=== PATIENT | female | born 1990 | race African-American/Black ===

== ENCOUNTER 2017-08-22 00:54 | Emergency (ER) | payer MEDICAID ==
[2017-08-22 01:02] VITALS: BP 143/101
[2017-08-22] MEDS ORDERED: NAPROXEN 250 MG TABLET PO ONE (01:04)
[2017-08-22] MEDS ORDERED: LIDOCAINE 1%/EPINEPHRINE INJ 20 ML VIAL INJ ONE (01:05)
--- NOTE | 2017-08-22 01:09 | ER Document Report ---
ED General - General Chief Complaint: Toothache Stated Complaint: TOOTH PAIN TRAVEL OUTSIDE OF THE [place] IN LAST 30 DAYS: No - HPI Notes: 27-year-old female presents with dental pain. Patient has history of chronic intermittent dental pain, of note had a infected tooth removed today from the right side. However she complains of increasing pain of her left mandibular second and third molar. Ongoing for 3 weeks but worse tonight, slight swelling. Throbbing aching, hot and cold sensitive. No trauma. No other modifying factors, no other associated symptoms, no other provocative or palliative factors. - Related Data Allergies/Adverse Reactions: Penicillins Allergy (Verified 08/22/17 00:58) Past Medical History - Social History Smoking Status: Never Smoker Frequency of alcohol use: None Drug Abuse: None Family History: None Patient has suicidal ideation: No Patient has homicidal ideation: No - Medical History Medical History: Negative Renal/ Medical History: Denies: Hx Peritoneal Dialysis Review of Systems - Review of Systems Notes: Review of systems as in history of present illness, otherwise no significant headache, chest pain, abdominal pain. Physical Exam - Vital signs Vitals: Temp Pulse Resp BP Pulse Ox 98.7 F 76 17 143/101 H 100 08/22/17 01:01 08/22/17 01:01 08/22/17 01:01 08/22/17 01:01 08/22/17 01:01 - Notes Notes: General: Well devloped, no acute distress. HEENT: Normocephalic, atraumatic. Pupils equal round reactive to light. Mucosa moist. No JVD. Poor dentition scattered. Carious left second and third molars. Mild gingival erythema. Chest: No trauma, normal excursion. Respiratory: Good air exchange, normal excursion. Cardiac: Regular rhythm Abdomen: Soft, benign. Nondistended. Back: No asymmetry or gross abnormality. Motor: Grossly normal power and tone. Neurologic: Alert, nonfocal. Vascular: Well perfused Skin: No petechiae or purpura Course - Re-evaluation Re-evalutation: 08/22/17 01:07 Patient is already on clindamycin she will continue this, see no major dental abscess. May have an early infection. Switch her to naproxen, perform dental block, follow-up with her dentist. Using 1% lidocaine with epinephrine after appropriate [place] identified in the inferior alveolar nerve block is performed on the right side, moderate relief is noted. - Vital Signs Vital signs: Temp Pulse Resp BP Pulse Ox 98.7 F 76 17 143/101 H 100 08/22/17 01:01 08/22/17 01:01 08/22/17 01:01 08/22/17 01:01 08/22/17 01:01 Discharge - Discharge Clinical Impression: Pain, dental Condition: Good Disposition: HOME, SELF-CARE Prescriptions: Naproxen 500 mg PO Q12 PRN #12 tablet PRN Reason:
== END 2017-08-22 01:20 | disposition home or self-care (01) ==
LOC: ER 00:54
DX: K08.9 Disorder of teeth and supporting structures, unspecified (principal); Z88.0 Allergy status to penicillin
CPT/HCPCS: 99282; 64400; J3490 ×2

== ENCOUNTER 2017-08-22 02:48 | Emergency (ER) | payer MEDICAID ==
[2017-08-22 02:55] VITALS: BP 129/77
[2017-08-22] MEDS ORDERED: HYDROCODONE/ACETAMINOPHEN 5-325 MG (6 TAB/ER DISP) PO PRN (03:04)
--- NOTE | 2017-08-22 03:09 | ER Document Report ---
ED General - General Chief Complaint: Toothache Stated Complaint: TOOTH PAIN Time Seen by Provider: 08/22/17 02:57 Notes: Patient is a 19-year-old female presents with complaint of dental pain on the left side. She is icing earlier today and given a dental block. She says it has not helped and she has been taking naproxen as prescribed and she still severe pain and cannot sleep. She had a tooth removed on the right side yesterday. She has 2 wisdom teeth are causing severe pain. The dentist referred her to an oral surgeon who will remove these on the . She says that she cannot tolerate the pain is been able to sleep and is what she is come back to the ER. No fevers. No new facial swelling. No difficulty breathing or swallowing. TRAVEL OUTSIDE OF THE [place] IN LAST 30 DAYS: No - Related Data Allergies/Adverse Reactions: Penicillins Allergy (Verified 08/22/17 00:58) Past Medical History - Social History Smoking Status: Never Smoker Frequency of alcohol use: None Drug Abuse: None Family History: None Renal/ Medical History: Denies: Hx Peritoneal Dialysis Review of Systems - Review of Systems Notes: My Normal Review Basic REVIEW OF SYSTEMS: CONSTITUTIONAL : Denies fever, chills, or sweats. Denies recent illness. EENT: Dental pain RESPIRATORY: Denies cough, cold, or chest congestion. Denies shortness of breath, difficulty breathing, or wheezing. NEUROLOGICAL: Denies altered mental status or loss of consciousness. ALL OTHER SYSTEMS REVIEWED AND NEGATIVE. Physical Exam - Vital signs Vitals: Temp Pulse Resp BP Pulse Ox 97.7 F 78 16 129/77 H 100 08/22/17 02:51 08/22/17 02:51 08/22/17 02:51 08/22/17 02:51 08/22/17 02:51 - Notes Notes: General Appearance: Well nourished, alert, cooperative, no acute distress, moderate obvious discomfort. Tearful Vitals: reviewed, See vital signs table. Head: no swelling or tenderness to the head Eyes: PERRL, EOMI, Conjuctiva clear Mouth: No evidence of gingival abscess or swelling. Patient has multiple dental fillings. Throat: No tonsillar inflammation, No airway obstruction, No lymphadenopathy Neck: Supple, no neck tenderness, No neck swelling Neuro: speech clear, oriented x 3, normal affect, responds appropriately to questions. Course - Re-evaluation Re-evalutation: 08/22/17 03:12 Patient does appear to be in significant pain. She did try the initial outpatient treatment which was Naprosyn a dental block but this did not work for her. I did look her up on the narcotic prescription database and she has never received any narcotics in the last 6 months. I do feel that her pain is legitimate. I informed her that I would send her home with a small bottle of [place]. I informed her that I do not want her to use this frequently and to only use it when absolutely necessary and she is having severe pain. I informed her that she cannot take it if she will be the only parent caring for her children as the medicine will affect her judgment therefore she must have someone else at the house helping care for the children if she is going to take medication. I informed her not to drive. Patient to return to ER immediately if she has facial swelling, swelling below the jaw, difficulty breathing or swallowing, or fevers. Patient agrees with plan and will be discharged home. Dictation of this chart was performed using voice recognition software; therefore, there may be some unintended grammatical errors. - Vital Signs Vital signs: Temp Pulse Resp BP Pulse Ox 97.7 F 78 16 129/77 H 100 08/22/17 02:51 08/22/17 02:51 08/22/17 02:51 08/22/17 02:51 08/22/17 02:51 Discharge - Discharge Clinical Impression: Pain, dental Condition: Good Disposition: HOME, SELF-CARE Instructions: Oral Narcotic Medication ([facility]) Additional Instructions: Please follow up with your dentist as scheduled. Please only take the [place] when your pain is severe and other over the counter medicines are not working. Please be aware that [place] does have Tylenol (acetaminophen) in it. Please make sure you do not take more than 4000 mg of acetaminophen a day. Do not drive or care for children after you have taken this medication they will make you sleepy and sometimes impair judgment. Return to the ER if you have facial swelling, difficulty breathing, difficulty swallowing, or fevers.
== END 2017-08-22 03:25 | disposition home or self-care (01) ==
LOC: ER 02:48
DX: K08.9 Disorder of teeth and supporting structures, unspecified (principal); Z88.0 Allergy status to penicillin
CPT/HCPCS: 99282

== ENCOUNTER → 2017-10-05 | Outpatient (CLI) | payer BC, MEDICAID ==
[2017-10-05 19:54] LABS: BACTERIA (WET MOUNT) 4+ BACTERIA SEEN; EPITHELIALS (WET MOUNT) 4+ EPITHELIALS SEEN; T.VAGINALIS (WET MOUNT) NO TRICHOMONAS SEEN; WBCS (WET MOUNT) RARE WBCS SEEN; YEAST (WET MOUNT) NO YEAST SEEN
== END ==
LOC: LAB 19:48
PROVIDERS: ATTEND Nurse Practitioner Acute Care
DX: N89.8 Other specified noninflammatory disorders of vagina (principal)
CPT/HCPCS: 87210

== ENCOUNTER 2018-02-11 18:52 | Emergency (ER) | payer BC, MEDICAID ==
[2018-02-11] MEDS ORDERED: PROCHLORPERAZINE EDISYLATE INJ 10 MG/2 ML VIAL IV ONE (21:29)
[2018-02-11] MEDS ORDERED: KETOROLAC TROMETHAMINE INJ/PF 30 MG/1 ML SDV IV ONE (21:29)
[2018-02-11] MEDS ORDERED: NORMAL SALINE 1000 ML 1,000 ML IV ONE (21:29)
[2018-02-11] MEDS ORDERED: DIPHENHYDRAMINE HCL 50 MG/ML VIAL IV ONE (21:29)
--- NOTE | 2018-02-11 22:05 | ER Document Report ---
ED Headache - General Chief Complaint: Sore Throat Stated Complaint: HEADACHE Time Seen by Provider: 02/11/18 20:28 Notes: Patient is a 27-year-old female presents to the emergency department chief complaint migraine. Patient states she has had a headache for the last 2 days that has not gone away. Patient states she has a history of migraines and this feels exactly like her previous migraines. Patient is also complaining of generalized body aches, chills and sweats, sore throat and bilateral heel pain. Patient is denying any runny nose cough, vomiting, diarrhea, fever. Patient does admit to intermittent nausea which she states is normal with her migraines. Patient states she has taken no [id number] medications for her headaches. Patient states she also has urinary frequency, is requesting a urinalysis at this time. Past medical history: Asthma Medications: None Allergies: Penicillin Patient denies cigarette smoking, denies illicit drug use, admits to occasional EtOH use. TRAVEL OUTSIDE OF THE [place] IN LAST 30 DAYS: No - Related Data Allergies/Adverse Reactions: Penicillins Allergy (Verified 08/22/17 00:58) Past Medical History - General Information source: Patient - Social History Smoking Status: Never Smoker Frequency of alcohol use: None Drug Abuse: None Family History: None Patient has suicidal ideation: No Patient has homicidal ideation: No Pulmonary Medical History: Reports: Hx Asthma Renal/ Medical History: Denies: Hx Peritoneal Dialysis Past Surgical History: Reports: Hx Oral Surgery Review of Systems - Review of Systems Constitutional: See HPI EENT: See HPI Cardiovascular: No symptoms reported Respiratory: See HPI Gastrointestinal: See HPI Genitourinary: See HPI. denies: Dysuria, Discharge Female Genitourinary: denies: Vaginal discharge Musculoskeletal: No symptoms reported Skin: No symptoms reported Hematologic/Lymphatic: No symptoms reported Neurological/Psychological: See HPI Physical Exam - Vital signs Vitals: Temp Pulse Resp BP Pulse Ox 98.2 F 94 14 124/74 98 02/11/18 18:59 02/11/18 18:59 02/11/18 18:59 02/11/18 18:59 02/11/18 18:59 - Notes Notes: GENERAL: Alert, interacts well. sunglasses on with the lights off in the room upon my arrival. HEAD: Normocephalic, atraumatic. EYES: Pupils equal, round, and reactive to light. Extraocular movements intact. ENT: Oral mucosa moist, tongue midline. Nares patent, TM's intact, nonerythematous, nonbulging. Pharynx minorly erythematous with no palatal petechiae or exudate noted. No lymphadenopathy appreciated NECK: Full range of motion. Supple. Trachea midline. No nuchal rigidity noted the LUNGS: Clear to auscultation bilaterally, no wheezes, rales, or rhonchi. No respiratory distress. HEART: Regular rate and rhythm. No murmur ABDOMEN: Soft, non-tender. Non-distended. Bowel sounds present in all 4 quadrants. EXTREMITIES: Moves all 4 extremities spontaneously. No edema, normal radial and dorsalis pedis pulses bilaterally. No cyanosis. BACK: no cervical, thoracic, lumbar midline tenderness. No saddle anesthesia, normal distal neurovascular exam. NEUROLOGICAL: Alert and oriented x3. Normal speech. cranial nerves II through XII grossly intact. PSYCH: Normal affect, normal mood. SKIN: Warm, dry, normal turgor. No rashes or lesions noted. Course - Re-evaluation Re-evalutation: 02/11/18 23:20 Patient's urine shows no signs of infection, after migraine treatment in the emergency room patient states she no longer has a headache. Patient states "I feel a whole lot better." Vital signs stable at this time, patient stable for discharge. - Vital Signs Vital signs: Temp Pulse Resp BP Pulse Ox 98.2 F 94 14 124/74 98 02/11/18 18:59 02/11/18 18:59 02/11/18 18:59 02/11/18 18:59 02/11/18 18:59 Discharge - Discharge Clinical Impression: Sore throat, Urinary frequency Upper respiratory infection Qualifiers: URI type: unspecified viral URI Qualified Code(s): J06.9 - Acute upper respiratory infection, unspecified Migraine Qualifiers: Migraine type: unspecified Status migrainosus presence: without status migrainosus Intractability: not intractable Qualified Code(s): G43.909 - Migraine, unspecified, not intractable, without status migrainosus Condition: Stable Disposition: HOME, SELF-CARE Instructions: Headache ([facility]), Sore Throat ([facility]), Viral Syndrome ([facility]), Upper Respiratory Illness ([facility]), Intravenous Compazine for Headaches ([facility]), Use of Diphenhydramine Additional Instructions: As we discussed you have been seen and treated in the emergency department for a migraine headache and an upper respiratory infection. Fortunately your strep test came back negative so you do not need to be treated with antibiotics. Your urine results also show no signs of infection. Please make sure you stay well- hydrated and follow-up with your primary care provider in the next 24-48 hours. Please return to the emergency room for any other concerning symptoms. Referrals: FAVIOLA CROCKETT NP [Primary Care Provider] - Follow up as needed
[2018-02-11 22:37] LABS: APPEARANCE,URINE SLIGHTLY-CLOUDY; BILIRUBIN,URINE NEGATIVE (NEGATIVE); COLOR,URINE YELLOW; GLUCOSE, URINE NEGATIVE (NEGATIVE); KETONES,URINE NEGATIVE (NEGATIVE); LEUKOCYTE ESTERASE,URINE NEGATIVE (NEGATIVE); NITRITE,URINE NEGATIVE (NEGATIVE); PROTEIN,URINE NEGATIVE (NEGATIVE); UROBILINOGEN,URINE NEGATIVE mg/dL (<2.0)
[2018-02-11 23:51] VITALS: BP 113/68
== END 2018-02-11 23:40 | disposition home or self-care (01) ==
LOC: ER 18:52
DX: G43.909 Migraine, unspecified, not intractable, without status migrainosus (principal); J06.9 Acute upper respiratory infection, unspecified; B97.89 Other viral agents as the cause of diseases classified elsewhere; J45.909 Unspecified asthma, uncomplicated; J02.9 Acute pharyngitis, unspecified; R35.0 Frequency of micturition; R68.83 Chills (without fever); R61 Generalized hyperhidrosis; M79.671 Pain in right foot; M79.672 Pain in left foot; R11.0 Nausea; Z88.0 Allergy status to penicillin
CPT/HCPCS: 99283; 96361; 96374; 96375; 87070; 87880; 81001; J1200; J1885; J0780; J7030

== ENCOUNTER → 2018-06-11 | Outpatient (CLI) | payer MEDICAID ==
[2018-06-11 16:00] LABS: BACTERIA (WET MOUNT) 4+ BACTERIA SEEN; EPITHELIALS (WET MOUNT) 3+ EPITHELIALS SEEN; T.VAGINALIS (WET MOUNT) NO TRICHOMONAS SEEN; WBCS (WET MOUNT) 3+ WBCS SEEN; YEAST (WET MOUNT) BUDDING YEAST SEEN
[2018-06-11 17:28] LABS: CHLAM PCR NOT DETECTED (NOT DETECT); GON PCR NOT DETECTED (NOT DETECT)
== END ==
LOC: LAB 15:42
PROVIDERS: ATTEND Nurse Practitioner Acute Care
DX: N89.8 Other specified noninflammatory disorders of vagina (principal); R30.0 Dysuria
CPT/HCPCS: 87086; 87210; 87491; 87591

== ENCOUNTER → 2018-08-25 | Outpatient (CLI) | payer MEDICAID ==
[2018-08-25 18:53] LABS: BACTERIA (WET MOUNT) 4+ BACTERIA SEEN; EPITHELIALS (WET MOUNT) 4+ EPITHELIALS SEEN; RBCS (WET MOUNT) FEW RBCS SEEN; T.VAGINALIS (WET MOUNT) NO TRICHOMONAS SEEN; WBCS (WET MOUNT) 3+ WBCS SEEN; YEAST (WET MOUNT) NO YEAST SEEN
[2018-08-25 19:06] LABS: APPEARANCE,URINE SLIGHTLY-CLOUDY; BILIRUBIN,URINE NEGATIVE (NEGATIVE); COLOR,URINE YELLOW; GLUCOSE, URINE NEGATIVE (NEGATIVE); KETONES,URINE NEGATIVE (NEGATIVE); LEUKOCYTE ESTERASE,URINE NEGATIVE (NEGATIVE); NITRITE,URINE NEGATIVE (NEGATIVE); PROTEIN,URINE NEGATIVE (NEGATIVE); URINE SPECIFIC GRAVITY 1.023; UROBILINOGEN,URINE NEGATIVE mg/dL (<2.0)
[2018-08-25 20:23] LABS: CHLAM PCR NOT DETECTED (NOT DETECT)
== END ==
LOC: LAB 18:41
PROVIDERS: ATTEND Nurse Practitioner Family
DX: B00.9 Herpesviral infection, unspecified (principal); N89.8 Other specified noninflammatory disorders of vagina; R30.0 Dysuria
CPT/HCPCS: 81001; 87086; 87210; 87250; 87491; 87591

== ENCOUNTER 2018-10-16 16:33 | Emergency (ER) | payer MEDICAID ==
--- NOTE | 2018-10-16 17:52 | ER Document Report ---
HPI - HPI Pain Level: Denies Notes: Patient is an otherwise healthy 28-year-old female presenting to the emergency department with concern that she has a yeast infection. Patient reports vaginal itching and white vaginal discharge that has been ongoing for 1 week after completion of antibiotics. Patient denies any dysuria or abnormal vaginal bleeding. Patient denies any abdominal pain, pelvic pain or fever. - REPRODUCTIVE LMP: 10/05/18 Reproductive: DENIES: : - DERM Skin Color: Normal Past Medical History - General Information source: Patient Last Menstrual Period: 10/05/18 - Social History Smoking Status: Never Smoker Chew tobacco use (# tins/day): No Frequency of alcohol use: Social Drug Abuse: Marijuana Family History: None Patient has suicidal ideation: No Patient has homicidal ideation: No Pulmonary Medical History: Reports: Hx Asthma Renal/ Medical History: Denies: Hx Peritoneal Dialysis Past Surgical History: Reports: Hx Oral Surgery Vertical Provider Document - CONSTITUTIONAL Notes: GENERAL: Well-appearing, well-nourished and in no acute distress. HEAD: Atraumatic, normocephalic. EYES: Pupils equal round and reactive to light, extraocular movements intact, conjunctiva are normal. ENT: Nares patent, oropharynx clear without exudates. Moist mucous membranes. NECK: Normal range of motion, supple without lymphadenopathy LUNGS: Breath sounds clear to auscultation bilaterally and equal. No wheezes rales or rhonchi. HEART: Regular rate and rhythm without murmurs ABDOMEN: Soft, nontender, nondistended abdomen. No guarding, no rebound. No masses appreciated. Female : No CVAT. Musculoskeletal: Normal range of motion, no pitting or edema. No cyanosis. NEUROLOGICAL: Cranial nerves grossly intact. Normal speech, normal gait. Normal sensory, motor exams PSYCH: Normal mood, normal affect. SKIN: Warm, Dry, normal turgor, no rashes or lesions noted. - INFECTION CONTROL TRAVEL OUTSIDE OF THE [place] IN LAST 30 DAYS: No Course - Re-evaluation Re-evalutation: Well-appearing nontoxic female presenting with abnormal vaginal discharge and no other complaints. A urinalysis was performed which was unremarkable. A wet mount was also collected which shows an overgrowth of bacteria. Patient will be started on medications for bacterial vaginosis. Patient is also requesting a dose of Diflucan as she is concerned that she has a yeast infection although there was not an overgrowth of yeast on the wet mount. I will give her a one- time dose considering we are starting her on antibiotics again. - Vital Signs Vital signs: Temp Pulse Resp BP Pulse Ox 98.5 F 71 16 131/75 H 97 10/16/18 16:52 10/16/18 16:52 10/16/18 16:52 10/16/18 16:52 10/16/18 16:52 Discharge - Discharge Clinical Impression: Bacterial vaginosis Condition: Stable Disposition: HOME, SELF-CARE Additional Instructions: You have an overgrowth of natural vaginal bacteria, called bacterial vaginosis. You are being treated with an antibiotic called metronidazole. Do not drink alcohol while taking this medication. Complete all of the antibiotic even if your symptoms have resolved. Return for abdominal pain, vomiting, fever of greater than 101F, or any other symptoms that are worrisome to you. Please follow-up with your SPORTS THERAPIST or primary care doctor as needed. Prescriptions: Metronidazole [Flagyl 500 mg Tablet] 500 mg PO BID #14 tablet Referrals: EMA ZELAYA NP [Primary Care Provider] - Follow up as needed
[2018-10-16 18:12] LABS: BACTERIA (WET MOUNT) 4+ BACTERIA SEEN; EPITHELIALS (WET MOUNT) 3+ EPITHELIALS SEEN; RBCS (WET MOUNT) FEW RBCS SEEN; WBCS (WET MOUNT) FEW WBCS SEEN; YEAST (WET MOUNT) NO YEAST SEEN
[2018-10-16 18:14] LABS: T.VAGINALIS (WET MOUNT) COULD NOT PERFORM
[2018-10-16 18:15] LABS: APPEARANCE,URINE CLEAR; BILIRUBIN,URINE NEGATIVE (NEGATIVE); COLOR,URINE YELLOW; GLUCOSE, URINE NEGATIVE (NEGATIVE); KETONES,URINE NEGATIVE (NEGATIVE); LEUKOCYTE ESTERASE,URINE NEGATIVE (NEGATIVE); NITRITE,URINE NEGATIVE (NEGATIVE); PROTEIN,URINE NEGATIVE (NEGATIVE); URINE SPECIFIC GRAVITY 1.009; UROBILINOGEN,URINE NEGATIVE mg/dL (<2.0)
[2018-10-16] MEDS ORDERED: FLUCONAZOLE 100 MG TABLET PO ONE (18:20)
[2018-10-16 18:41] VITALS: BP 132/75
== END 2018-10-16 18:40 | disposition home or self-care (01) ==
LOC: ER 16:33
DX: N76.0 Acute vaginitis (principal); B96.89 Other specified bacterial agents as the cause of diseases classified elsewhere; J45.909 Unspecified asthma, uncomplicated; F12.10 Cannabis abuse, uncomplicated
CPT/HCPCS: 87210; 81001; J3490; 99283

== ENCOUNTER 2018-11-06 15:52 | Emergency (ER) | payer SELFPAY ==
[2018-11-06] MEDS ORDERED: ACETAMINOPHEN 325 MG TABLET PO ONE (17:17)
--- NOTE | 2018-11-06 17:18 | ER Document Report ---
ED GI/ - General Chief Complaint: Vaginal Discharge Stated Complaint: VAGINAL BLEEDING Time Seen by Provider: 11/06/18 17:05 Primary Care Provider: EMA ZELAYA NP [Primary Care Provider] - Follow up as needed Notes: Patient is a 28-year-old female with a history of asthma who presents to the emergency department with a chief complaint of vaginal discharge. Patient reports 2 days ago she developed a thick white vaginal discharge. Patient reports she feels like she may have a yeast infection. Patient reports she was just recently treated last week for bacterial vaginosis and did finish 1 week of Flagyl. Patient reports she is having some labial swelling and itching. Patient denies urinary symptoms. Patient reports she is also concerned that she may be as she is sexually active. Patient reports her last menstrual cycle started on October 05. Patient reports she has not had her cycle as of yet. Patient reports she is also concerned for sexually transmitted diseases. TRAVEL OUTSIDE OF THE [place] IN LAST 30 DAYS: No - Related Data Allergies/Adverse Reactions: Penicillins Allergy (Verified 10/16/18 16:35) Past Medical History - General Information source: Patient - Social History Smoking Status: Current Every Day Smoker Frequency of alcohol use: None Drug Abuse: Marijuana Lives with: Friend Family History: None Patient has suicidal ideation: No Patient has homicidal ideation: No - Past Medical History Cardiac Medical History: Reports: None Pulmonary Medical History: Reports: Hx Asthma EENT Medical History: Reports: None Neurological Medical History: Reports: Hx Migraine Endocrine Medical History: Reports: None Renal/ Medical History: Reports: None. Denies: Hx Peritoneal Dialysis Malignancy Medical History: Reports: None GI Medical History: Reports: None Musculoskeletal Medical History: Reports None Skin Medical History: Reports None Psychiatric Medical History: Reports: None Traumatic Medical History: Reports: None Infectious Medical History: Reports: None Past Surgical History: Reports: Hx Genitourinary Surgery, Hx Oral Surgery Review of Systems - Review of Systems Constitutional: No symptoms reported EENT: No symptoms reported Cardiovascular: No symptoms reported Respiratory: No symptoms reported Gastrointestinal: No symptoms reported Genitourinary: No symptoms reported Female Genitourinary: See HPI Musculoskeletal: No symptoms reported Skin: No symptoms reported Hematologic/Lymphatic: No symptoms reported Neurological/Psychological: No symptoms reported Physical Exam - Vital signs Vitals: Temp Pulse Resp BP Pulse Ox 98.1 F 84 18 128/77 H 100 11/06/18 15:59 11/06/18 15:59 11/06/18 15:59 11/06/18 15:59 11/06/18 15:59 Interpretation: Normal - Notes Notes: GENERAL: Well-appearing, well-nourished and in no acute distress. HEAD: Atraumatic, normocephalic. EYES: Pupils equal round and reactive to light, extraocular movements intact, sclera anicteric, conjunctiva are normal. ENT: TMs normal, nares patent, oropharynx clear without exudates. Moist mucous membranes. NECK: Normal range of motion, supple without lymphadenopathy or JVD. LUNGS: Breath sounds clear to auscultation bilaterally and equal. No wheezes rales or rhonchi. HEART: Regular rate and rhythm without murmurs, rubs or gallops. ABDOMEN: Soft, nontender, normoactive bowel sounds. No suprapubic tenderness. No guarding, no rebound. No masses appreciated. BACK: No cervical, thoracic, lumbar midline tenderness. No saddle anesthesia, normal distal neurovascular exam. NO CVA tenderness. GENITOURINARY: Deferred. EXTREMITIES: Normal range of motion, no pitting or edema. No clubbing or cyanosis. NEUROLOGICAL: Cranial nerves II through XII grossly intact. Normal speech, normal gait. PSYCH: Normal mood, normal affect. SKIN: Warm, Dry, normal turgor, no rashes or lesions noted. Course - Re-evaluation Re-evalutation: 11/06/18 17:16 We will obtain a pelvic examination. I did offer the patient to go ahead and be treated for gonorrhea and chlamydia before the cultures have resulted. Patient reports she would like to wait. - Vital Signs Vital signs: Temp Pulse Resp BP Pulse Ox 98.1 F 84 18 128/77 H 100 11/06/18 15:59 11/06/18 15:59 11/06/18 15:59 11/06/18 15:59 11/06/18 15:59 - Laboratory Laboratory results interpreted by me: 11/06/18 16:50 Ur Leukocyte Esterase LARGE H Procedures - Pelvic Exam Pelvic exam Time completed: 17:50 Cultures obtained: Yes Wet prep obtained: Yes Foreign body removed: No Witnessed by: Nurse Tech Notes: 11/06/18 17:51 External genitalia examination did reveal slight edema noted to the labia majora. There was thick white vaginal discharge noted externally. Patient tolerated the insertion of the speculum fairly well. I was able to visualize the cervix which was closed. There was a thick amount of white to green discharge within the vaginal vault and around the cervix. Specimens were obtained. Discharge - Discharge Clinical Impression: Yeast infection involving the vagina and surrounding area, Bacterial vaginosis Condition: Stable Disposition: HOME, SELF-CARE Additional Instructions: Today you are seen in the emergency department for vaginal discharge. You do have bacterial vaginosis as well as a vaginal yeast infection. You have been given a one-time dose of Diflucan for the yeast. I am giving you a prescription for a one-time dose of Diflucan that you can repeat in 72 hours if your symptoms are still present such as the thick white discharge and itching. You are also being prescribed Flagyl for your bacterial vaginosis. You will take Flagyl twice a day for the next 7 days. You do need to follow-up with the health department or your FLOATER OPERATOR to make sure that your infection has improved. Please return to the emergency department if you develop a fever, abdominal pain, pelvic pain or any change in your vaginal discharge. We did obtain cultures for gonorrhea and chlamydia. At this time he did not want to be prophylactically treated for these but you will be contacted if they are positive. Vaginosis, Bacterial Your exam shows you have bacterial vaginosis. This condition is due to an overgrowth of bacteria in the vagina. Symptoms may include vaginal itching or pain, a smelly discharge, and sometimes burning with urination. Normally this is not transmitted by sexual contact. Vaginosis can be treated with oral or topical antibiotics. Metronidazole (Flagyl) pills are usually effective. Topical vaginal creams include Cleocin and Metro-Gel. You should avoid sexual contact until your symptoms are all better. Call the doctor if you develop pelvic pain, fever, or problems with urination, or if you don't improve as expected. Vaginal Yeast Infection You have evidence of a yeast infection -- called "yenifer." A vaginal yeast infection often causes itching and discharge. While not dangerous, it can be very unpleasant. A yeast infection often follows the use of powerful antibiotics. It is more likely to occur in diabetics. The treatment now is usually a single pill of Diflucan, but also an antifungal cream or suppository may be used for a few days. You do not need to avoid sexual intercourse. Recurrences are common. You can make a recurrence less likely by wearing cotton underwear and avoiding tight clothing. For mild recurrences, you can try [id number] creams or suppositories that are made specifically for yeast. If the symptoms do not resolve, you should follow up for re-examination. Sometimes treatment of the sexual partner is necessary if infections are recurrent. Prescriptions: Fluconazole [Diflucan] 150 mg PO ONCE PRN #1 tablet PRN Reason: Metronidazole [Flagyl 500 mg Tablet] 500 mg PO BID 7 Days #14 tablet Referrals: EMA ZELAYA, INSULATION HOSEMAN [Primary Care Provider] - Follow up as needed
[2018-11-06 17:27] LABS: APPEARANCE,URINE CLEAR; BILIRUBIN,URINE NEGATIVE (NEGATIVE); COLOR,URINE YELLOW; GLUCOSE, URINE NEGATIVE (NEGATIVE); KETONES,URINE NEGATIVE (NEGATIVE); LEUKOCYTE ESTERASE,URINE LARGE (NEGATIVE); NITRITE,URINE NEGATIVE (NEGATIVE); PROTEIN,URINE NEGATIVE (NEGATIVE); URINE SPECIFIC GRAVITY 1.012; UROBILINOGEN,URINE NEGATIVE mg/dL (<2.0)
[2018-11-06 18:01] LABS: BACTERIA (WET MOUNT) 4+ BACTERIA SEEN; EPITHELIALS (WET MOUNT) 3+ EPITHELIALS SEEN; RBCS (WET MOUNT) NO RBCS SEEN; T.VAGINALIS (WET MOUNT) NO TRICHOMONAS SEEN; WBCS (WET MOUNT) 4+ WBCS SEEN; YEAST (WET MOUNT) YEAST SEEN
[2018-11-06] MEDS ORDERED: FLUCONAZOLE 100 MG TABLET PO ONE (18:30)
[2018-11-06] MEDS ORDERED: METRONIDAZOLE 500 MG TABLET PO ONE (18:30)
[2018-11-06 18:47] VITALS: BP 128/78
[2018-11-06 18:53] LABS: CHLAM PCR NOT DETECTED (NOT DETECT)
== END 2018-11-06 18:47 | disposition home or self-care (01) ==
LOC: ER 15:52
DX: N76.0 Acute vaginitis (principal); B96.89 Other specified bacterial agents as the cause of diseases classified elsewhere; B37.3 Candidiasis of vulva and vagina; Z20.2 Contact with and (suspected) exposure to infections with a predominantly sexual mode of transmission; F17.200 Nicotine dependence, unspecified, uncomplicated; J45.909 Unspecified asthma, uncomplicated; Z88.0 Allergy status to penicillin
CPT/HCPCS: 81001; 81025; 87086; 87088; 87210; 87491; 87591

== ENCOUNTER 2019-01-18 14:46 | Emergency (ER) | payer SELFPAY ==
--- NOTE | 2019-01-18 16:24 | ER Document Report ---
ED Medical Screen (RME) - General Stated Complaint: VAGINAL DISCHARGE/BURNING Time Seen by Provider: 01/18/19 16:20 Primary Care Provider: EMA ZELAYA NP [Primary Care Provider] - Follow up as needed TRAVEL OUTSIDE OF THE [place] IN LAST 30 DAYS: No - HPI Notes: 01/18/19 16:22 Patient is a 28-year-old female who presents complaining of intermittent lower pelvic pain with vaginal odor and discharge which she believes is consistent with bacterial vaginosis which she has had before. She is able to eat and drink without difficulty. She is urinating normally and having normal bowel movements. No fever, nausea/vomiting. I have treated and performed a rapid initial assessment of this patient. A comprehensive ED assessment and evaluation of the patient, analysis of test results and completion of medical decision making process will be conducted by additional ED providers. PHYSICAL EXAMINATION: GENERAL: Well-appearing, well-nourished and in no acute distress. A&Ox4. Answers questions appropriately. - Related Data Allergies/Adverse Reactions: Penicillins Allergy (Verified 10/16/18 16:35) Past Medical History - Social History Chew tobacco use (# tins/day): No Drug Abuse: None Pulmonary Medical History: Reports: Hx Asthma Neurological Medical History: Reports: Hx Migraine Renal/ Medical History: Denies: Hx Peritoneal Dialysis Past Surgical History: Reports: Hx Genitourinary Surgery, Hx Oral Surgery Physical Exam - Vital signs Vitals: Temp Pulse Resp BP Pulse Ox 98.7 F 83 15 113/63 97 01/18/19 15:11 01/18/19 15:11 01/18/19 15:11 01/18/19 15:11 01/18/19 15:11 Course - Vital Signs Vital signs: Temp Pulse Resp BP Pulse Ox 98.7 F 83 15 113/63 97 01/18/19 16:18 01/18/19 15:11 01/18/19 16:18 01/18/19 15:11 01/18/19 16:18 Doctor's Discharge - Discharge Referrals: EMA ZELAYA NP [Primary Care Provider] - Follow up as needed
[2019-01-18] MEDS: AZITHROMYCIN 250 MG TABLET PO ONE ×2 (17:01→17:09)
[2019-01-18] MEDS: CEFTRIAXONE INJ 250 MG VIAL IM ONE ×2 (17:02→17:09)
[2019-01-18] MEDS: LIDOCAINE 1% INJ-PF (10 MG/ML) 30 ML SDV INJ ONE ×2 (17:02→17:09)
[2019-01-18 17:11] LABS: RBCS (WET MOUNT) RARE RBCS SEEN; T.VAGINALIS (WET MOUNT) NO TRICHOMONAS SEEN; WBCS (WET MOUNT) RARE WBCS SEEN; YEAST (WET MOUNT) NO YEAST SEEN
[2019-01-18 17:12] LABS: BACTERIA (WET MOUNT) 3+ BACTERIA SEEN; EPITHELIALS (WET MOUNT) 3+ EPITHELIALS SEEN
[2019-01-18 18:27] LABS: CHLAM PCR NOT DETECTED (NOT DETECT)
[2019-01-18] MEDS ORDERED: METRONIDAZOLE 500 MG TABLET PO ONE (18:32)
[2019-01-18] MEDS ORDERED: ONDANSETRON 4 MG TAB.RAPDIS PO ONE (18:32)
--- NOTE | 2019-01-18 18:34 | ER Document Report ---
ED General - General Chief Complaint: Vaginal Discharge Stated Complaint: VAGINAL DISCHARGE/BURNING Time Seen by Provider: 01/18/19 16:20 Primary Care Provider: EMA ZELAYA NP [Primary Care Provider] - Follow up in 1 week TRAVEL OUTSIDE OF THE [place] IN LAST 30 DAYS: No - HPI Notes: 28-year-old female to the emergency department with complaints of vaginal discharge, vaginal itching that began several days ago. She states that this feels a lot like her past episodes of bacterial vaginosis. She states that she has been having trouble with bacterial vaginosis nearly monthly typically in and around her periods. She has been using tampons for every period. She denies any vaginal bleeding. She states that there is no way that she could be . She denies any fevers or chills, nausea, vomiting, diarrhea. She states that she has a low suspicion for STD but would like to be checked. She would like to wait to get treatment until the results come back. She denies any other complaints - Related Data Allergies/Adverse Reactions: Penicillins Allergy (Verified 10/16/18 16:35) Past Medical History - General Information source: Patient - Social History Smoking Status: Never Smoker Chew tobacco use (# tins/day): No Frequency of alcohol use: Occasional Drug Abuse: None Family History: None, Reviewed & Not Pertinent Patient has suicidal ideation: No Patient has homicidal ideation: No Pulmonary Medical History: Reports: Hx Asthma Neurological Medical History: Reports: Hx Migraine Renal/ Medical History: Denies: Hx Peritoneal Dialysis Past Surgical History: Reports: Hx Genitourinary Surgery, Hx Oral Surgery Review of Systems - Review of Systems Constitutional: denies: Chills, Fever EENT: No symptoms reported Cardiovascular: denies: Chest pain, Palpitations, Heart racing, Syncope, Dizziness, Lightheaded Respiratory: denies: Cough, Short of breath Gastrointestinal: denies: Abdominal pain, Diarrhea, Nausea, Vomiting Genitourinary: No symptoms reported Female Genitourinary: See HPI, Vaginal discharge. denies: Musculoskeletal: No symptoms reported Skin: No symptoms reported Hematologic/Lymphatic: No symptoms reported Neurological/Psychological: No symptoms reported -: Yes All other systems reviewed and negative Physical Exam - Vital signs Vitals: Temp Pulse Resp BP Pulse Ox 98.7 F 83 15 113/63 97 01/18/19 15:11 01/18/19 15:11 01/18/19 15:11 01/18/19 15:11 01/18/19 15:11 Interpretation: Normal - General General appearance: Appears well, Alert In distress: None - HEENT Head: Normocephalic, Atraumatic Eyes: Normal Pupils: PERRL - Respiratory Respiratory status: No respiratory distress Chest status: Nontender. No: Accessory muscle use Breath sounds: Normal. No: Rales, Rhonchi, Stridor, Wheezing Chest palpation: Normal - Cardiovascular Rhythm: Regular Heart sounds: Normal auscultation Murmur: No - Abdominal Inspection: Normal Distension: No distension Bowel sounds: Normal Tenderness: Nontender. No: Tender, McBurney's point, Couch's sign, Guarding, Rebound Organomegaly: No organomegaly - Back Back: Normal, Nontender - Neurological Neuro grossly intact: Yes Cognition: Normal Orientation: AAOx4 [place] Coma Scale Eye Opening: Spontaneous Roberta Coma Scale Verbal: Oriented Roberta Coma Scale Motor: Obeys Commands Roberta Coma Scale Total: 15 Speech: Normal Cranial nerves: Normal Cerebellar coordination: Normal Motor strength normal: LUE, RUE, LLE, RLE Additional motor exam normals: Equal first responder. No: Pronator drift Sensory: Normal - Psychological Associated symptoms: Normal affect, Normal mood - Skin Skin Temperature: Warm Skin Moisture: Dry Skin Color: Normal Course - Re-evaluation Re-evalutation: 01/18/19 Impression: Bacterial vaginosis. Noted pending gonorrhea and chlamydia. Patient declined Rocephin as she would like to wait results but she did take azithromycin. She states that azithromycin did make her a little bit nauseous on her stomach but she is feels better after kathi yordy, crackers, water. Noted that urine was not ordered from triage. I discussed with patient that I would like to test her for but she states that there is no way that she could be and she declines testing today. Encouraged her to eat activity of her probiotics and try menstrual pads for the next several months to see if that helps with her recurrent bacterial vaginosis. Patient agrees with the plan. We will have her follow-up with primary care. - Vital Signs Vital signs: Temp Pulse Resp BP Pulse Ox 97.5 F 74 20 129/85 H 95 01/18/19 19:16 01/18/19 19:16 01/18/19 19:16 01/18/19 19:16 01/18/19 19:16 Discharge - Discharge Clinical Impression: Bacterial vaginosis, Vaginal discharge Condition: Stable Disposition: HOME, SELF-CARE Instructions: Vaginosis, Bacterial ([facility]) Additional Instructions: Eat an Activa yogurt daily. Use pads around your period instead of tampons. Use unscented soap -- do not douches, wear cotton underwear. Referrals: EMA ZELAYA NP [Primary Care Provider] - Follow up in 1 week
[2019-01-18 19:16] VITALS: BP 129/85
== END 2019-01-18 19:33 | disposition home or self-care (01) ==
LOC: ER 14:46
DX: N76.0 Acute vaginitis (principal); B96.89 Other specified bacterial agents as the cause of diseases classified elsewhere; J45.909 Unspecified asthma, uncomplicated
CPT/HCPCS: 99283; 87210; 87491; 87591; S0119; J0696; J3490

== ENCOUNTER 2019-02-16 23:28 | Emergency (ER) | payer SELFPAY ==
--- NOTE | 2019-02-17 00:13 | ER Document Report ---
ED GI/ - General Chief Complaint: Vaginal Discharge Stated Complaint: VAGINAL ISSUE Time Seen by Provider: 02/16/19 23:40 Primary Care Provider: EMA EZLAYA NP [Primary Care Provider] - Follow up as needed Mode of Arrival: Ambulatory Information source: Patient Notes: 28-year-old female presented to ED for complaint of vaginal discharge vaginal pain. She states that she has had a yellow-green drainage for about 2 weeks. She states that her boyfriend cheated on her with his ex girlfriend and his ex- girlfriend cheated with another boy and so she does not know who all has been involved in this episode. She states her vaginal drainage is yellow-green and very painful. She states she does not have pelvic pain is just pain in the vaginal area. TRAVEL OUTSIDE OF THE [place] IN LAST 30 DAYS: No - HPI Patient complains to provider of: Vaginal discharge, Vaginal pain Onset: Last week Timing/Duration: Gradual, Persistent Quality of pain: Burning, Sharp Severity at maximum: Moderate Severity in ED: Moderate Pain Level: 3 Location: Vaginal Vaginal bleeding (Compared to normal period): None LMP: February 02, 2019 Associated symptoms: Vaginal discharge Relieved by: Denies Similar symptoms previously: Yes Recently seen / treated by doctor: No - Related Data Allergies/Adverse Reactions: Penicillins Allergy (Verified 10/16/18 16:35) Past Medical History - General Information source: Patient - Social History Smoking Status: Never Smoker Frequency of alcohol use: Social Drug Abuse: None Lives with: Alone Family History: None, Reviewed & Not Pertinent Patient has suicidal ideation: No Patient has homicidal ideation: No - Past Medical History Cardiac Medical History: Reports: None Pulmonary Medical History: Reports: Hx Asthma EENT Medical History: Reports: None Neurological Medical History: Reports: Hx Migraine Endocrine Medical History: Reports: None Renal/ Medical History: Reports: None Malignancy Medical History: Reports: None GI Medical History: Reports: None Musculoskeletal Medical History: Reports None Skin Medical History: Reports Hx Eczema Psychiatric Medical History: Reports: None Traumatic Medical History: Reports: None Infectious Medical History: Reports: None Past Surgical History: Reports: Hx Genitourinary Surgery, Hx Oral Surgery - Immunizations Immunizations up to date: Yes Review of Systems - Review of Systems Constitutional: No symptoms reported EENT: No symptoms reported Cardiovascular: No symptoms reported Respiratory: No symptoms reported Gastrointestinal: No symptoms reported Genitourinary: No symptoms reported Female Genitourinary: Vaginal discharge, Vaginal odor Musculoskeletal: No symptoms reported Skin: No symptoms reported Hematologic/Lymphatic: No symptoms reported Neurological/Psychological: No symptoms reported -: Yes All other systems reviewed and negative Physical Exam - Vital signs Vitals: Temp Pulse Resp BP Pulse Ox 98.0 F 97 20 154/99 H 99 02/16/19 23:32 02/16/19 23:32 02/16/19 23:32 02/16/19 23:32 02/16/19 23:32 Interpretation: Normal - General General appearance: Appears well, Alert - HEENT Head: Normocephalic, Atraumatic Eyes: Normal Pupils: PERRL - Respiratory Respiratory status: No respiratory distress Chest status: Nontender Breath sounds: Normal Chest palpation: Normal - Cardiovascular Rhythm: Regular Heart sounds: Normal auscultation Murmur: No - Abdominal Inspection: Normal Distension: No distension Bowel sounds: Normal Tenderness: Nontender Organomegaly: No organomegaly - Genitourinary External exam: Normal Speculum exam: Vaginal discharge Vaginal bleeding: None [place]imanuel exam: Normal - Back Back: Normal, Nontender - Extremities General upper extremity: Normal inspection, Nontender, Normal color, Normal ROM, Normal temperature General lower extremity: Normal inspection, Nontender, Normal color, Normal ROM, Normal temperature, Normal weight bearing. No: Heydi's sign - Neurological Neuro grossly intact: Yes Cognition: Normal Orientation: AAOx4 Roberta Coma Scale Eye Opening: Spontaneous Roberta Coma Scale Verbal: Oriented [place] Coma Scale Motor: Obeys Commands Roberta Coma Scale Total: 15 Speech: Normal Motor strength normal: LUE, RUE, LLE, RLE Sensory: Normal - Psychological Associated symptoms: Normal affect, Normal mood - Skin Skin Temperature: Warm Skin Moisture: Dry Skin Color: Normal Course - Re-evaluation Re-evalutation: 02/17/19 03:03 Discussed labs with patient. Written report was given to patient and instructed to follow-up with primary care and/or health department for further treatment and testing. Patient was treated with Diflucan and doxycycline for UTI and yeast infection. She was also discharged home for prescriptions of both. Juan Carlos king verbalized understanding and agreement with treatment plan and was discharged home. - Vital Signs Vital signs: Temp Pulse Resp BP Pulse Ox 97.7 F 85 16 120/84 96 02/17/19 02:18 02/17/19 02:18 02/17/19 02:18 02/17/19 02:18 02/17/19 02:18 - Laboratory Laboratory results interpreted by me: 02/17/19 00:33 Urine Blood SMALL H Leukocyte Esterase Rfl LARGE H Discharge - Discharge Clinical Impression: Vaginal yeast infection UTI (urinary tract infection) Qualifiers: Urinary tract infection type: acute cystitis Hematuria presence: without hematuria Qualified Code(s): N30.00 - Acute cystitis without hematuria Condition: Stable Disposition: HOME, SELF-CARE Additional Instructions: URINARY TRACT INFECTION: Your evaluation indicates that you have a urinary tract infection. This is due to germs growing in the bladder. This is a common problem. This infection usually responds quickly to antibiotics. Your antibiotic should be taken exactly as prescribed. Drink plenty of fluids -- three to four quarts a day. Occasionally, a bladder anesthetic will be prescribed to help stop the feeling of urgency until the antibiotic has a chance to clear the infection. This may cause your urine to be dark orange. Certain urine infections require a culture. If the doctor obtained a culture, the results will be back in two days. You should call to see if a change in treatment is needed. A repeat urinalysis after you finish treatment is often recommended. The physician will let you know if further testing is required. Call the doctor if you develop fever, chills, flank pain, inability to urinate, or blood in the urine. VAGINAL YEAST INFECTION: You have evidence of a yeast infection -- called "yenifer." A vaginal yeast infection often causes itching and discharge. While not dangerous, it can be very unpleasant. A yeast infection often follows the use of powerful antibiotics. It is more likely to occur in diabetics. The treatment now is usually a single pill of Diflucan, but also an antifungal cream or suppository may be used for a few days. You do not need to avoid sexual intercourse. Recurrences are common. You can make a recurrence less likely by wearing cotton underwear and avoiding tight clothing. For mild recurrences, you can try [id number] creams or suppositories that are made specifically for yeast. If the symptoms do not resolve, you should follow up for re-examination. Sometimes treatment of the sexual partner is necessary if infections are recurrent. DOXYCYCLINE: Doxycycline (Vibramycin, Doryx) is an antibiotic of the tetracycline family. This type of drug is useful for infections of the respiratory tract and genital tract, and is sometimes used for intestinal infections. Unlike most tetracyclines, doxycycline can be taken with food. It is longer acting, and (usually) less prone to side effects than regular tetracycline. Tetracycline antibiotics can stain immature teeth and SHOULD NOT BE TAKEN BY CHILDREN, NURSING MOTHERS, OR WOMEN. Tetracyclines can make you more prone to sunburn. Abdominal cramping, nausea, and diarrhea are occasional side effects. Women may experience vaginal yeast infections. Call the doctor at once if you develop hives, itching, shortness of breath, or lightheadedness. FLUCONAZOLE: Fluconazole (Diflucan) is an antifungal drug. It is useful for serious fungal infections, but is also excellent for oral or vaginal yeast infections. Diflucan interacts with some medicines. This is a concern if you are taking anticoagulants (such as Coumadin), phenytoin (Dilantin), cyclosporin, or oral hypoglycemics (such as tolbutamide, Orinase, glipizide, Glucotrol, glyburide, DiaBeta, Glynase, and Micronase). Be sure the doctor knows if you are taking one of these medicines. We don't know how Diflucan affects . If you are planning to become , discuss this with your doctor. Diflucan has few side effects. Minor side effects may include nausea, headache, or diarrhea. Call the doctor if you develop a skin rash, shortness of breath, or other new symptoms. FOLLOW-UP CARE: If you have been referred to a physician for follow-up care, call the physicians office for an appointment as you were instructed or within the next two days. If you experience worsening or a significant change in your symptoms, notify the physician immediately or return to the Emergency Department at any time for re-evaluation. Prescriptions: Fluconazole [Diflucan] 150 mg PO ONCE PRN #1 tablet PRN Reason: Doxycycline Hyclate 100 mg PO BID #14 capsule Forms: Elevated Blood Pressure Referrals: EMA ZELAYA NP [Primary Care Provider] - Follow up as needed
[2019-02-17 00:27] LABS: BACTERIA (WET MOUNT) 3+ BACTERIA SEEN; EPITHELIALS (WET MOUNT) 3+ EPITHELIALS SEEN; RBCS (WET MOUNT) 1+ RBCS SEEN; T.VAGINALIS (WET MOUNT) NO TRICHOMONAS SEEN; WBCS (WET MOUNT) 2+ WBCS SEEN; YEAST (WET MOUNT) YEAST SEEN
[2019-02-17 01:04] LABS: APPEARANCE,URINE CLEAR; BILIRUBIN,URINE NEGATIVE (NEGATIVE); COLOR,URINE STRAW; GLUCOSE, URINE NEGATIVE (NEGATIVE); KETONES,URINE NEGATIVE (NEGATIVE); PROTEIN,URINE NEGATIVE (NEGATIVE); URINE SPECIFIC GRAVITY 1.006; UROBILINOGEN,URINE NEGATIVE mg/dL (<2.0)
[2019-02-17 02:00] LABS: CHLAM PCR NOT DETECTED (NOT DETECT)
[2019-02-17] MEDS ORDERED: DOXYCYCLINE HYCLATE 100 MG TABLET PO ONE (02:09)
[2019-02-17] MEDS ORDERED: FLUCONAZOLE 100 MG TABLET PO ONE (02:09)
[2019-02-17 02:20] VITALS: BP 120/84
== END 2019-02-17 02:20 | disposition home or self-care (01) ==
LOC: ER 23:28
DX: N30.00 Acute cystitis without hematuria (principal); B37.3 Candidiasis of vulva and vagina; N89.8 Other specified noninflammatory disorders of vagina; R10.2 Pelvic and perineal pain; J45.909 Unspecified asthma, uncomplicated
CPT/HCPCS: 81001; 81025; 87086; 87210; 87491; 87591; 99283

== ENCOUNTER 2019-03-26 17:22 | Emergency (ER) | payer SELFPAY ==
[2019-03-26 18:14] LABS: APPEARANCE,URINE CLEAR; BILIRUBIN,URINE NEGATIVE (NEGATIVE); COLOR,URINE STRAW; GLUCOSE, URINE NEGATIVE (NEGATIVE); KETONES,URINE NEGATIVE (NEGATIVE); LEUKOCYTE ESTERASE,URINE SMALL (NEGATIVE); NITRITE,URINE NEGATIVE (NEGATIVE); PROTEIN,URINE NEGATIVE (NEGATIVE); URINE SPECIFIC GRAVITY 1.008; UROBILINOGEN,URINE NEGATIVE mg/dL (<2.0)
[2019-03-26 20:30] LABS: ABSOLUTE EOSINOPHILS # (AUTO) 0.1 10^3/uL (0.0-0.6); ABSOLUTE MONOCYTES (AUTO) 0.4 10^3/uL (0.1-1.4); ABSOLUTE NEUT (AUTO) 2.3 10^3/uL (1.7-8.2); BASOPHILS % (AUTO) 0.8 % (0-2); EOSINOPHILS % (AUTO) 2.4 % (0-6); HEMATOCRIT 41.9 % (36.0-47.0); HEMOGLOBIN 14.2 g/dL (12.0-15.5); LYMPHOCYTES % (AUTO) 51.4 % (13-45); MEAN CORPUSCULAR HEMOGLOBIN 32.4 pg (27.0-33.4); MEAN CORPUSCULAR VOLUME 96 fl (80-97); MONOCYTES % (AUTO) 6.5 % (3-13); PLATELET COUNT 297 10^3/uL (150-450); RED BLOOD COUNT 4.39 10^6/uL (3.72-5.28); RED CELL DISTRIBUTION WIDTH 13.2 % (11.5-14.0); SEGMENTED NEUTROPHILS % (AUTO) 38.9 % (42-78); TOTAL CELLS COUNTED % (AUTO) 100 %; WHITE BLOOD COUNT 5.9 10^3/uL (4.0-10.5)
[2019-03-26 20:52] LABS: ALBUMIN 4.3 g/dL (3.5-5.0); ALKALINE PHOSPHATASE 39 U/L (38-126); ANION GAP 10 (5-19); ASPARTATE AMINO TRANSFERASE 29 U/L (14-36); BILIRUBIN,DIRECT 0.2 mg/dL (0.0-0.4); BILIRUBIN,TOTAL 0.5 mg/dL (0.2-1.3); BLOOD UREA NITROGEN 11 mg/dL (7-20); CALCIUM 9.6 mg/dL (8.4-10.2); CARBON DIOXIDE 27 mmol/L (22-30); CHLORIDE 102 mmol/L (98-107); GLUCOSE 94 mg/dL (75-110); POTASSIUM 4.4 mmol/L (3.6-5.0); TOTAL PROTEIN 7.5 g/dL (6.3-8.2)
[2019-03-26] MEDS ORDERED: KETOROLAC TROMETHAMINE INJ/PF 30 MG/1 ML SDV IV ONE (21:07)
[2019-03-26] MEDS ORDERED: MORPHINE SULFATE 10 MG/ML INJ IV ONE (21:07)
[2019-03-26] MEDS ORDERED: ONDANSETRON HCL INJ/PF 4 MG/2 ML SDV IV ONE (21:07)
--- NOTE | 2019-03-26 21:09 | ER Document Report ---
ED General - General Chief Complaint: Flank Pain Stated Complaint: RIGHT FLANK PAIN,PAINFUL URINATION Time Seen by Provider: 03/26/19 20:50 Primary Care Provider: EMA ZELAYA NP [Primary Care Provider] - Follow up as needed Notes: Patient is a 28-year-old female that comes emergency department for chief complaint of pain in her right lower back for the past couple of days, she also states she started to get sharp pains in her right pelvic area and lower abdominal area. She also reports occasional shooting pain down the back of her right leg. She denies injury to her back or abdomen, numbness, incontinence, vaginal discharge or bleeding, dysuria, fever/chills, nausea/vomiting. She denies history of ovarian cysts. She states she was just treated and just completed antibiotics for UTI. She denies concerns of STD. She denies any abdominal surgeries or medical history otherwise. TRAVEL OUTSIDE OF THE [place] IN LAST 30 DAYS: No - Related Data Allergies/Adverse Reactions: Penicillins Allergy (Verified 10/16/18 16:35) Past Medical History - General Information source: Patient - Social History Smoking Status: Never Smoker Chew tobacco use (# tins/day): No Frequency of alcohol use: None Drug Abuse: None Lives with: Family Family History: None, Reviewed & Not Pertinent Patient has suicidal ideation: No Patient has homicidal ideation: No Pulmonary Medical History: Reports: Hx Asthma Neurological Medical History: Reports: Hx Migraine Renal/ Medical History: Denies: Hx Peritoneal Dialysis Skin Medical History: Reports Hx Eczema Past Surgical History: Reports: Hx Genitourinary Surgery - reflux, Hx Oral Surgery - Immunizations Immunizations up to date: Yes Review of Systems - Review of Systems Constitutional: No symptoms reported EENT: No symptoms reported Cardiovascular: No symptoms reported Respiratory: No symptoms reported Gastrointestinal: See HPI Genitourinary: See HPI Female Genitourinary: No symptoms reported Musculoskeletal: See HPI Skin: No symptoms reported Hematologic/Lymphatic: No symptoms reported Neurological/Psychological: No symptoms reported Physical Exam - Vital signs Vitals: Temp Pulse Resp BP Pulse Ox 98.1 F 74 16 129/89 H 99 03/26/19 18:37 03/26/19 18:37 03/26/19 18:37 03/26/19 18:37 03/26/19 18:37 - Notes Notes: GENERAL: Alert, interacts well. No acute distress. HEAD: Normocephalic, atraumatic. EYES: Pupils equal, round, and reactive to light. Squinting in the light, mild photophobia. Extraocular movements intact. ENT: Oral mucosa moist, tongue midline. Oropharynx unremarkable. Airway patent. LUNGS: Clear to auscultation bilaterally, no wheezes, rales, or rhonchi. No respiratory distress. HEART: Regular rate and rhythm. No murmur ABDOMEN: There is some tenderness in the lower abdomen/pelvic region on the right side, no overt McBurney's point tenderness, no notable tenderness or guard ing, unremarkable otherwise. GENITOURINARY: Deferred EXTREMITIES: Moves all 4 extremities spontaneously. No edema, normal radial and dorsalis pedis pulses bilaterally. No cyanosis. BACK: There is tenderness with palpable tender muscle fibers along the right paralumbar musculature. No signs of trauma. Negative straight leg raise. No cervical, thoracic, lumbar midline tenderness. No saddle anesthesia, normal distal neurovascular exam. Moves all extremities in full range of motion. NEUROLOGICAL: Alert and oriented x3. Normal speech. Cranial nerves II through XII grossly intact. PSYCH: Normal affect, normal mood. SKIN: Warm, dry, normal turgor. No rashes or lesions noted. Course - Re-evaluation Re-evalutation: Patient is well-appearing on exam. She has pain with palpation over the muscle fibers of the right paralumbar musculature, pain with movement, reported occasional radiation down her right leg. No neurological deficits, no fever, no reported IV drug abuse, unremarkable exam otherwise. Patient is complaining of some tenderness in the right lower abdomen/pelvic area, ultrasound is negative for acute findings. Patient has had multiple recent pelvic exams. She denies vaginal discharge or concerns of STD. As result pelvic exam was deferred. Very low suspicion of appendicitis based on her benign exam, CBC, chemistry, urinalysis unremarkable, negative. On reevaluation patient reported headache is gone, she has no current symptoms, she states appreciation and that she feels much better. Discussed with patient. Discussed suspect musculoskeletal and nonemergent problems in regards to her fl ank and abdominal pain. Discussed treatment options and she will be treated with muscle relaxers, Toradol, given school release on request. Discussed follow-up and return precautions. Patient states understanding and agreement. - Vital Signs Vital signs: Temp Pulse Resp BP Pulse Ox 98.0 F 60 18 124/74 99 03/26/19 22:52 03/26/19 22:52 03/26/19 22:52 03/26/19 22:52 03/26/19 22:52 - Laboratory Result Diagrams: 03/26/19 19:35 03/26/19 19:35 Laboratory results interpreted by me: 03/26/19 03/26/19 17:30 19:35 Lymph % (Auto) 51.4 H Seg Neutrophils % 38.9 L Ur Leukocyte Esterase SMALL H Discharge - Discharge Clinical Impression: Flank pain Abdominal pain Qualifiers: Abdominal location: lower abdomen, unspecified Qualified Code(s): R10.30 - Lower abdominal pain, unspecified Condition: Stable Disposition: HOME, SELF-CARE Additional Instructions: Your work-up and ultrasound do not show any concerning findings. Your evaluation is most consistent with a muscle spasm of your lower back, the exact cause of your abdominal pain is uncertain at this time. I suspect this is either bowel or lymph nodes, this should simply resolve with time. Take the medications for pain and muscle relaxer as prescribed, drink plenty fluids, apply heat to your back. Avoid lifting or twisting symptoms resolve. Follow-up with primary care. Return if you worsen including severe worsening pain, vomiting, fever, or any other concerning or worsening symptoms. Prescriptions: Ketorolac Tromethamine [Toradol 10 mg Tablet] 10 mg PO Q8HP PRN #24 tablet PRN Reason: Methocarbamol [Robaxin-750] 750 mg PO QID PRN #20 tablet PRN Reason: Forms: Return to School Referrals: EMA ZELAYA NP [Primary Care Provider] - Follow up as needed
--- NOTE | 2019-03-26 22:19 | RADIOLOGY REPORT (SQ) ---
US PELVIS TRANSVAGINAL HISTORY: 28 years Female Sharp right-sided pelvic pain. COMPARISON: No relevant studies are available for comparison. Technique: Transvaginal Imaging of the pelvis was performed. Color and spectral imaging was performed. Uterus: It is retroverted. It measures 6.3 x 4.0 x 5.6 cm. Small nabothian cysts are seen in the cervix. The endometrium is normal and measures 8 mm. Right Ovary: Measures 2.1 x 1.6 x 2.5 cm. Morphology is normal.. Normal color and spectral doppler waveforms Left Ovary: Measures 3.2 x 2.9 x 1.4 cm. Morphology is normal.. Normal color and spectral doppler waveforms Other: No free fluid IMPRESSION: Unremarkable pelvic ultrasound.
[2019-03-26 22:53] VITALS: BP 124/74
== END 2019-03-26 23:03 | disposition home or self-care (01) ==
LOC: ER 17:22
DX: R10.30 Lower abdominal pain, unspecified (principal); M54.5 Low back pain; R30.0 Dysuria; R51 Headache; Z88.0 Allergy status to penicillin
CPT/HCPCS: 36415; 83690; 84703; 85025; 80053; 81001; 76830; 93976; J1885; J2270; J2405; 96374; 96375; 99284

== ENCOUNTER 2019-04-06 20:08 | Emergency (ER) | payer SELFPAY ==
[2019-04-06] MEDS ORDERED: ACETAMINOPHEN 325 MG TABLET PO ONE (20:25)
--- NOTE | 2019-04-06 20:25 | ER Document Report ---
ED Medical Screen (RME) - General Chief Complaint: Abdominal Pain Stated Complaint: ABDOMINAL PAIN,VAGINAL DISCHARGE Time Seen by Provider: 04/06/19 20:22 Primary Care Provider: EMA ZELAYA NP [Primary Care Provider] - Follow up as needed TRAVEL OUTSIDE OF THE [place] IN LAST 30 DAYS: No - HPI Notes: 04/06/19 20:24 Patient is a 28-year-old female who presents complaining of vaginal discharge and lower pelvic pain for the past couple days. Patient believes that this may be bacterial vaginosis. No fever, chest pain, URI, vomiting, diarrhea. Patient is declining any ultrasound at this time. I have treated and performed a rapid initial assessment of this patient. A comprehensive ED assessment and evaluation of the patient, analysis of test results and completion of medical decision making process will be conducted by additional ED providers. PHYSICAL EXAMINATION: GENERAL: Well-appearing, well-nourished and in no acute distress. A&Ox4. Answers questions appropriately. - Related Data Allergies/Adverse Reactions: Penicillins Allergy (Verified 10/16/18 16:35) Past Medical History Pulmonary Medical History: Reports: Hx Asthma Neurological Medical History: Reports: Hx Migraine Renal/ Medical History: Denies: Hx Peritoneal Dialysis Skin Medical History: Reports Hx Eczema Past Surgical History: Reports: Hx Genitourinary Surgery - reflux, Hx Oral Surgery - Immunizations Immunizations up to date: Yes Physical Exam - Vital signs Vitals: Temp Pulse Resp BP Pulse Ox 100.0 F 80 16 129/79 H 97 04/06/19 20:20 04/06/19 20:20 04/06/19 20:20 04/06/19 20:20 04/06/19 20:20 Course - Vital Signs Vital signs: Temp Pulse Resp BP Pulse Ox 100.0 F 80 16 129/79 H 97 04/06/19 20:20 04/06/19 20:20 04/06/19 20:20 04/06/19 20:20 04/06/19 20:20 Doctor's Discharge - Discharge Referrals: EMA ZELAYA NP [Primary Care Provider] - Follow up as needed
[2019-04-06 20:56] LABS: APPEARANCE,URINE SLIGHTLY-CLOUDY; BILIRUBIN,URINE NEGATIVE (NEGATIVE); COLOR,URINE YELLOW; GLUCOSE, URINE NEGATIVE (NEGATIVE); KETONES,URINE NEGATIVE (NEGATIVE); PROTEIN,URINE NEGATIVE (NEGATIVE); URINE SPECIFIC GRAVITY 1.021; UROBILINOGEN,URINE NEGATIVE mg/dL (<2.0)
--- NOTE | 2019-04-06 22:17 | ER Document Report ---
HPI - HPI Patient complains to provider of: Vaginal discharge Time Seen by Provider: 04/06/19 22:00 Onset: Other - 5 days Onset/Duration: Persistent Pain Level: 2 Context: Patient presents stating that she has had vaginal discharge for the past 5 days. Patient denies any urinary symptoms. Patient is concerned that she may have bacterial vaginosis. Patient does complain of lower pelvic tenderness. Patient states the pain started after using a dildo. Associated Symptoms: denies: Fever, Nausea, Vomiting Exacerbated by: Denies Relieved by: Denies Similar symptoms previously: Yes Recently seen / treated by doctor: No - ROS ROS below otherwise negative: Yes - CONSTITUTIONAL Constitutional: DENIES: Fever, Chills - CARDIOVASCULAR Cardiovascular: DENIES: Chest pain - RESPIRATORY Respiratory: DENIES: Trouble Breathing, Coughing - GASTROINTESTINAL Gastrointestinal: REPORTS: Abdominal Pain - started today. DENIES: Nausea, Patient vomiting, Black / Bloody Stools - URINARY Urinary: DENIES: Dysuria, Urgency, Frequency - REPRODUCTIVE Reproductive: REPORTS: Abnormal bleeding / discharge. DENIES: : - MUSCULOSKELETAL Musculoskeletal: DENIES: Extremity pain, Back Pain - DERM Skin Color: Normal Skin Problems: None Past Medical History - General Information source: Patient - Social History Smoking Status: Never Smoker Frequency of alcohol use: None Drug Abuse: None Occupation: None Family History: None, Reviewed & Not Pertinent Patient has suicidal ideation: No Patient has homicidal ideation: No Pulmonary Medical History: Reports: Hx Asthma Neurological Medical History: Reports: Hx Migraine Renal/ Medical History: Denies: Hx Peritoneal Dialysis Skin Medical History: Reports Hx Eczema Past Surgical History: Reports: Hx Genitourinary Surgery - reflux, Hx Oral Surgery - Immunizations Immunizations up to date: Yes Vertical Provider Document - CONSTITUTIONAL Agree With Documented VS: Yes Exam Limitations: No Limitations General Appearance: WD/WN, No Apparent Distress - INFECTION CONTROL TRAVEL OUTSIDE OF THE [place] IN LAST 30 DAYS: No - HEENT HEENT: Atraumatic, Normocephalic - NECK Neck: Normal Inspection, Supple - RESPIRATORY Respiratory: Breath Sounds Normal, No Respiratory Distress - CARDIOVASCULAR Cardiovascular: Regular Rate, Regular Rhythm - GI/ABDOMEN Gastrointestinal: Abdomen Soft, Abdomen Non-Tender - BACK Back: Normal Inspection. negative: CVA Tenderness-Right, CVA Tenderness-Left - MUSCULOSKELETAL/EXTREMETIES Musculoskeletal/Extremeties: MAEW, FROM - NEURO Level of Consciousness: Awake, Alert, Appropriate Motor/Sensory: No Motor Deficit - DERM Integumentary: Warm, Dry, No Rash Course - Re-evaluation Re-evalutation: 04/07/19 Patient refused pelvic examination and prefers only to self swab. 04/07/19 Patient concerned that she has BV, patient requesting prescription for Flagyl as well as Diflucan to help manage her vaginal discharge symptoms. Patient denies any concerns about STI and does not request prophylactic treatment at this time. - Vital Signs Vital signs: Temp Pulse Resp BP Pulse Ox 99 F 80 16 129/79 H 97 04/06/19 20:27 04/06/19 20:20 04/06/19 20:20 04/06/19 20:20 04/06/19 20:20 - Laboratory Laboratory results interpreted by me: 04/06/19 20:30 Urine Blood SMALL H Leukocyte Esterase Rfl TRACE H Discharge - Discharge Clinical Impression: Vaginal discharge UTI (urinary tract infection) Qualifiers: Urinary tract infection type: site unspecified Hematuria presence: without hematuria Qualified Code(s): N39.0 - Urinary tract infection, site not specified Condition: Stable Disposition: HOME, SELF-CARE Instructions: Nitrofurantoin ([facility]), Urinary Tract Infection ([facility]), Vaginosis, Bacterial ([facility]) Additional Instructions: Return immediately for any new or worsening symptoms Followup with your primary care provider, call tomorrow to make a followup appointment Prescriptions: Fluconazole [Diflucan] 150 mg PO NOW PRN #1 tablet PRN Reason: Metronidazole [Flagyl 500 mg Tablet] 500 mg PO BID #14 tablet Nitrofurantoin Monohyd/M-Cryst [Macrobid 100 mg Capsule] 100 mg PO BID #10 cap Referrals: EMA ZELAYA, NURSING PROJECT COORDINATOR [Primary Care Provider] - Follow up as needed
[2019-04-06 23:32] LABS: EPITHELIALS (WET MOUNT) 3+ EPITHELIALS SEEN; T.VAGINALIS (WET MOUNT) NO TRICHOMONAS SEEN; WBCS (WET MOUNT) NO WBCS SEEN; YEAST (WET MOUNT) NO YEAST SEEN
[2019-04-07] MEDS ORDERED: METRONIDAZOLE 500 MG TABLET PO ONE (00:44)
[2019-04-07] MEDS ORDERED: NITROFURANTOIN MONOHYD/M-CRYST 100 MG CAPSULE PO ONE (00:44)
[2019-04-07 00:57] LABS: CHLAM PCR NOT DETECTED (NOT DETECT)
[2019-04-07 01:14] VITALS: BP 119/75
== END 2019-04-07 01:19 | disposition home or self-care (01) ==
LOC: ER 20:08
DX: N89.8 Other specified noninflammatory disorders of vagina (principal); N39.0 Urinary tract infection, site not specified; J45.909 Unspecified asthma, uncomplicated
CPT/HCPCS: 99283; 87210; 81025; 81001; 87491; 87591; J8499

== ENCOUNTER 2019-04-07 20:01 | Emergency (ER) | payer SELFPAY ==
[2019-04-07] MEDS ORDERED: NORMAL SALINE 1000 ML 1,000 ML IV ONE (20:48)
--- NOTE | 2019-04-07 20:53 | ER Document Report ---
ED Medical Screen (RME) - General Chief Complaint: Flank Pain Stated Complaint: RIGHT FLANK PAIN, MIGRAINE, FEVER Time Seen by Provider: 04/07/19 20:41 Primary Care Provider: EMA ZELAYA NP [Primary Care Provider] - Follow up as needed Notes: Patient is a 28-year-old female presents emergency department with a chief complaint of right lower back pain. Patient reports yesterday she was diagnosed with a urinary tract infection and placed on Macrobid and was also given Flagyl for bacterial vaginosis. Patient reports she felt like she had chills all day and is requesting a CAT scan to rule out a kidney infection. Patient reports a subjective fever but has not taken her temperature at home. Patient denies vomiting or diarrhea. TRAVEL OUTSIDE OF THE [place] IN LAST 30 DAYS: No - Related Data Allergies/Adverse Reactions: Penicillins Allergy (Verified 10/16/18 16:35) Past Medical History Pulmonary Medical History: Reports: Hx Asthma Neurological Medical History: Reports: Hx Migraine Renal/ Medical History: Denies: Hx Peritoneal Dialysis Skin Medical History: Reports Hx Eczema Past Surgical History: Reports: Hx Genitourinary Surgery - reflux, Hx Oral Surgery - Immunizations Immunizations up to date: Yes Physical Exam - Vital signs Vitals: Temp Pulse Resp BP Pulse Ox 97.7 F 98 16 132/84 H 97 04/07/19 20:07 04/07/19 20:07 04/07/19 20:07 04/07/19 20:07 04/07/19 20:07 Course - Re-evaluation Re-evalutation: 04/07/19 20:51 No CVA tenderness. Patient require a thorough abdominal exam once placed in a room. Patient's not tachycardic, hypotensive or febrile in triage. I have greeted and performed a rapid initial assessment of this patient. A comprehensive ED assessment and evaluation of the patient, analysis of test results and completion of the medical decision making process will be conducted by additional ED providers. - Vital Signs Vital signs: Temp Pulse Resp BP Pulse Ox 97.7 F 98 16 132/84 H 97 04/07/19 20:07 04/07/19 20:07 04/07/19 20:07 04/07/19 20:07 04/07/19 20:07 Doctor's Discharge - Discharge Referrals: MELLING,EMA, READING PROFESSOR [Primary Care Provider] - Follow up as needed
[2019-04-07 21:55] LABS: APPEARANCE,URINE TURBID; BILIRUBIN,URINE NEGATIVE (NEGATIVE); GLUCOSE, URINE NEGATIVE (NEGATIVE); KETONES,URINE NEGATIVE (NEGATIVE); LEUKOCYTE ESTERASE,URINE MODERATE (NEGATIVE); NITRITE,URINE NEGATIVE (NEGATIVE); PROTEIN,URINE 30 mg/dL (NEGATIVE); UROBILINOGEN,URINE NEGATIVE mg/dL (<2.0)
[2019-04-07 21:56] LABS: COLOR,URINE DARK YELLOW
[2019-04-07 22:11] LABS: ALBUMIN 4.5 g/dL (3.5-5.0); ALKALINE PHOSPHATASE 36 U/L (38-126); ANION GAP 11 (5-19); ASPARTATE AMINO TRANSFERASE 25 U/L (14-36); BILIRUBIN,DIRECT 0.3 mg/dL (0.0-0.4); BILIRUBIN,TOTAL 0.4 mg/dL (0.2-1.3); BLOOD UREA NITROGEN 12 mg/dL (7-20); CALCIUM 9.4 mg/dL (8.4-10.2); CARBON DIOXIDE 25 mmol/L (22-30); CHLORIDE 101 mmol/L (98-107); GLUCOSE 113 mg/dL (75-110); POTASSIUM 4.1 mmol/L (3.6-5.0); TOTAL PROTEIN 7.7 g/dL (6.3-8.2)
[2019-04-07] MEDS ORDERED: ACETAMINOPHEN 325 MG TABLET PO ONE (23:29)
[2019-04-08 00:17] LABS: ABSOLUTE BASOPHILS # (AUTO) 0.1 10^3/uL (0.0-0.2); ABSOLUTE EOSINOPHILS # (AUTO) 0.2 10^3/uL (0.0-0.6); ABSOLUTE LYMPHOCYTES (AUTO) 3.1 10^3/uL (0.5-4.7); ABSOLUTE MONOCYTES (AUTO) 0.5 10^3/uL (0.1-1.4); ABSOLUTE NEUT (AUTO) 3.6 10^3/uL (1.7-8.2); BASOPHILS % (AUTO) 0.8 % (0-2); EOSINOPHILS % (AUTO) 2.6 % (0-6); HEMATOCRIT 37.7 % (36.0-47.0); HEMOGLOBIN 13.2 g/dL (12.0-15.5); MEAN CORPUSCULAR HEMOGLOBIN 32.3 pg (27.0-33.4); MEAN CORPUSCULAR HGB CONC 35.1 g/dL (32.0-36.0); MONOCYTES % (AUTO) 6.9 % (3-13); PLATELET COUNT 236 10^3/uL (150-450); RED CELL DISTRIBUTION WIDTH 12.8 % (11.5-14.0); SEGMENTED NEUTROPHILS % (AUTO) 48.7 % (42-78); TOTAL CELLS COUNTED % (AUTO) 100 %; WHITE BLOOD COUNT 7.5 10^3/uL (4.0-10.5)
[2019-04-08 00:30] LABS: MEAN CORPUSCULAR VOLUME 92 fl (80-97)
[2019-04-08] MEDS ORDERED: KETOROLAC TROMETHAMINE INJ/PF 30 MG/1 ML SDV IV ONE (01:51)
[2019-04-08] MEDS ORDERED: CEFTRIAXONE 1 GM/D5W RTU 1 GM/50 ML RTUPB IV ONE (01:52)
--- NOTE | 2019-04-08 02:03 | ER Document Report ---
ED General - General Chief Complaint: Flank Pain Stated Complaint: RIGHT FLANK PAIN, MIGRAINE, FEVER Time Seen by Provider: 04/07/19 20:41 Primary Care Provider: EMA ZELAYA NP [Primary Care Provider] - Follow up as needed TRAVEL OUTSIDE OF THE [place] IN LAST 30 DAYS: No - HPI Notes: Patient is a 28-year-old female who presents to the emergency department for evaluation of right flank pain, urinary frequency. She is concerned she had a kidney infection. She was seen here yesterday. She had a pelvic exam performed. She was diagnosed with bacterial vaginosis and a urinary tract infection. She was given her first dose of Macrobid last night, states she had 1 leftover at home that she took earlier, but has not yet filled the prescription. She states her temperature was as high as 100.0 today. She denies any nausea or vomiting. She has some urinary frequency that she feels has worsened. No dysuria or gross hematuria to her knowledge. - Related Data Allergies/Adverse Reactions: Penicillins Allergy (Verified 10/16/18 16:35) Home Medications: flagyl, macrobid, diflucan -patient has had 2 total doses of the Macrobid, has not taken the Flagyl or the Diflucan Past Medical History - Social History Smoking Status: Never Smoker Family History: None, Reviewed & Not Pertinent Patient has suicidal ideation: No Patient has homicidal ideation: No Pulmonary Medical History: Reports: Hx Asthma Neurological Medical History: Reports: Hx Migraine Renal/ Medical History: Denies: Hx Peritoneal Dialysis Skin Medical History: Reports Hx Eczema Past Surgical History: Reports: Hx Genitourinary Surgery - reflux, Hx Oral Surgery - WISDOM TEETH - Immunizations Immunizations up to date: Yes Review of Systems - Review of Systems Constitutional: See HPI Genitourinary: See HPI Musculoskeletal: See HPI Physical Exam - Vital signs Vitals: Temp Pulse Resp BP Pulse Ox 97.7 F 98 16 132/84 H 97 04/07/19 20:07 04/07/19 20:07 04/07/19 20:07 04/07/19 20:07 04/07/19 20:07 - Notes Notes: Vital signs reviewed, please refer to chart. Head is normocephalic, atraumatic. Pupils equal round, reactive to light. Neck is supple without meningismus. Heart is regular rate and rhythm. Lungs are clear to auscultation bilaterally. Abdomen is soft, nontender, normoactive bowel sounds throughout. Extremities without cyanosis, clubbing. Negative Fermin sign. She does have some right paraspinal musculature tenderness noted from approximately T12 down through L4- L5. Posterior calves are nontender. Peripheral pulses are equal. Skin is warm and dry. Patient is awake, alert, neurological exam is nonfocal. Course - Re-evaluation Re-evalutation: 04/08/19 02:00 Patient presents to the emergency department for evaluation of continued urinary symptoms as well as some right flank pain. She is not febrile here. She is not tachycardic. She does not have a significant leukocytosis. She does not have significant past medical history either. I explained to the patient the importance of actually taking antibiotics as prescribed, as scheduled. She voiced understanding. At any rate, given the progression of her symptoms, she is dosed with IV Rocephin here. I will give her a short course of Cipro for discharge. She is to follow-up with primary care, return to the ED with wors ening or new concerning symptoms of any sort. - Vital Signs Vital signs: Temp Pulse Resp BP Pulse Ox 97.7 F 98 16 132/84 H 97 04/07/19 20:07 04/07/19 20:07 04/07/19 20:07 04/07/19 20:07 04/07/19 20:07 - Laboratory Result Diagrams: 04/07/19 23:58 04/07/19 21:22 Laboratory results interpreted by me: 04/07/19 04/07/19 21:22 21:22 Glucose 113 H Alkaline Phosphatase 36 L Urine Protein 30 H Ur Leukocyte Esterase MODERATE H Urine Ascorbic Acid 20 H Discharge - Discharge Clinical Impression: UTI (urinary tract infection) Qualifiers: Encounter type: initial encounter Condition: Stable Disposition: HOME, SELF-CARE Instructions: Urinary Tract Infection ([facility]) Additional Instructions: You have been diagnosed with an acute complicated urinary tract infection. Because of progression of your symptoms, you have been given an IV dose of a ntibiotics, we will change your antibiotic to Cipro. Please fill this prescription exactly as directed and take it as prescribed, starting tomorrow. Return to the emergency department with worsening or new concerning symptoms of any sort. Referrals: MELLING,EMA, ARTIFICIAL STONE APPLICATOR [Primary Care Provider] - Follow up as needed
[2019-04-08 03:19] VITALS: BP 118/69
== END 2019-04-08 03:21 | disposition home or self-care (01) ==
LOC: ER 20:01
DX: N39.0 Urinary tract infection, site not specified (principal); R10.9 Unspecified abdominal pain; R50.9 Fever, unspecified; R35.0 Frequency of micturition; Z79.899 Other long term (current) drug therapy; Z88.0 Allergy status to penicillin; J45.909 Unspecified asthma, uncomplicated
CPT/HCPCS: 99283; 96361; 96375; 96365; 36415; 87086; 85025; 81025; 80053; 81001; J1885; J7030; J0696

== ENCOUNTER 2019-05-04 17:52 | Emergency (ER) | payer SELFPAY ==
--- NOTE | 2019-05-04 18:19 | ER Document Report ---
ED Medical Screen (RME) - General Chief Complaint: Urinary Problem Stated Complaint: URINARY PROBLEM Primary Care Provider: [facility] [Primary Care Provider] - Follow up as needed Notes: Patient is a 28-year-old -[place] female with reported past medical history of frequent urinary tract infections. She states recently she said several episodes with right flank pain that have continuously been diagnosed as UTIs. She has been on several treatment regimens and states that the pain and problems continue to persist. She is never been evaluated for kidney stone. She has had blood in previous urine samples. Admits to dysuria, pain that radiates along the right flank and some blood in the urine that is visible on wiping occasionally. She also admits to some discharge but reports that she was recently seen at [facility] and had a full pelvic work-up that was negative for STD but positive for yeast. She took the first yeast tablet but lost the second tablet for the 72-hour dose. She was seen 3 days ago in an outpatient clinic and had a urinalysis done but never got a phone call the results or treatment for her infection. She returns here today because it is worsening. She denies any fever, nausea or vomiting or diarrhea. No chills or night sweats. I have treated and performed a rapid initial assessment of this patient. A comprehensive ED assessment and evaluation of the patient, analysis of test results and completion of medical decision making process will be conducted by additional ED providers. PHYSICAL EXAMINATION: GENERAL: Well-appearing, well-nourished and in no acute distress. A&Ox4. Answers questions appropriately. TRAVEL OUTSIDE OF THE [place] IN LAST 30 DAYS: No - Related Data Allergies/Adverse Reactions: Penicillins Allergy (Verified 05/04/19 18:06) Past Medical History - Social History Chew tobacco use (# tins/day): No Frequency of alcohol use: Occasional Drug Abuse: None Pulmonary Medical History: Reports: Hx Asthma Neurological Medical History: Reports: Hx Migraine Renal/ Medical History: Denies: Hx Peritoneal Dialysis Skin Medical History: Reports Hx Eczema Past Surgical History: Reports: Hx Genitourinary Surgery - reflux, Hx Oral Surgery - WISDOM TEETH - Immunizations Immunizations up to date: Yes Physical Exam - Vital signs Vitals: Temp Pulse Resp BP Pulse Ox 98.4 F 80 14 134/80 H 99 05/04/19 17:55 05/04/19 17:55 05/04/19 17:55 05/04/19 17:55 05/04/19 17:55 Course - Vital Signs Vital signs: Temp Pulse Resp BP Pulse Ox 98.4 F 80 14 134/80 H 99 05/04/19 17:55 05/04/19 17:55 05/04/19 17:55 05/04/19 17:55 05/04/19 17:55 Doctor's Discharge - Discharge [facility]: [facility] [Primary Care Provider] - Follow up as needed
[2019-05-04 18:49] LABS: ABSOLUTE EOSINOPHILS # (AUTO) 0.1 10^3/uL (0.0-0.6); ABSOLUTE LYMPHOCYTES (AUTO) 2.4 10^3/uL (0.5-4.7); ABSOLUTE MONOCYTES (AUTO) 0.4 10^3/uL (0.1-1.4); ABSOLUTE NEUT (AUTO) 3.9 10^3/uL (1.7-8.2); BASOPHILS % (AUTO) 0.7 % (0-2); EOSINOPHILS % (AUTO) 1.1 % (0-6); HEMATOCRIT 40.2 % (36.0-47.0); HEMOGLOBIN 13.9 g/dL (12.0-15.5); LYMPHOCYTES % (AUTO) 35.4 % (13-45); MEAN CORPUSCULAR HGB CONC 34.5 g/dL (32.0-36.0); MEAN CORPUSCULAR VOLUME 93 fl (80-97); MONOCYTES % (AUTO) 5.8 % (3-13); PLATELET COUNT 282 10^3/uL (150-450); RED BLOOD COUNT 4.34 10^6/uL (3.72-5.28); RED CELL DISTRIBUTION WIDTH 12.8 % (11.5-14.0); TOTAL CELLS COUNTED % (AUTO) 100 %; WHITE BLOOD COUNT 6.9 10^3/uL (4.0-10.5)
[2019-05-04 18:55] LABS: APPEARANCE,URINE CLEAR; BILIRUBIN,URINE NEGATIVE (NEGATIVE); COLOR,URINE YELLOW; GLUCOSE, URINE NEGATIVE (NEGATIVE); KETONES,URINE NEGATIVE (NEGATIVE); PROTEIN,URINE NEGATIVE (NEGATIVE); URINE SPECIFIC GRAVITY 1.012; UROBILINOGEN,URINE NEGATIVE mg/dL (<2.0)
[2019-05-04 19:05] LABS: ALBUMIN 4.6 g/dL (3.5-5.0); ALKALINE PHOSPHATASE 37 U/L (38-126); ANION GAP 9 (5-19); ASPARTATE AMINO TRANSFERASE 29 U/L (14-36); BILIRUBIN,DIRECT 0.2 mg/dL (0.0-0.4); BILIRUBIN,TOTAL 0.8 mg/dL (0.2-1.3); BLOOD UREA NITROGEN 16 mg/dL (7-20); CALCIUM 9.8 mg/dL (8.4-10.2); CARBON DIOXIDE 26 mmol/L (22-30); CHLORIDE 102 mmol/L (98-107); GLUCOSE 96 mg/dL (75-110); POTASSIUM 4.1 mmol/L (3.6-5.0)
--- NOTE | 2019-05-04 19:52 | RADIOLOGY REPORT (SQ) ---
EXAM DESCRIPTION: CT ABD/PELVIS NO ORAL OR IV IMAGES COMPLETED DATE/TIME: 05/04/2019 7:36 pm REASON FOR STUDY: r flank pain COMPARISON: Pelvic ultrasound from March. TECHNIQUE: CT scan of the abdomen and pelvis performed without intravenous or oral contrast. Images reviewed with lung, soft tissue, and bone windows. Reconstructed coronal and sagittal MPR images revi ewed. All images stored on PACS. All CT scanners at this facility use dose modulation, iterative reconstruction, and/or weight based d osing when appropriate to reduce radiation dose to as low as reasonably achievable (ALARA). [facility]: Dose Right [facility]: CareDose [facility]: Dose Right [facility]: Teradose 4D [facility]: Smart Purple RADIATION DOSE: CT Rad equipment meets quality standard of care and radiation dose reduction techniq ues were employed. CTDIvol: 10.5 mGy. DLP: 576 mGy-cm.mGy. LIMITATIONS: None. FINDINGS: LOWER CHEST: No significant findings. No nodules or infiltrates. NON-CONTRASTED LIVER, SPLEEN, ADRENALS: Evaluation limited by lack of IV contrast. No identified sign ificant masses. PANCREAS: No masses. No peripancreatic inflammatory changes. GALLBLADDER: No identified stones by CT criteria. No inflammatory changes to suggest cholecystitis. RIGHT KIDNEY AND URETER: No solid masses. No significant calcification. No hydronephrosis or hydroure ter. LEFT KIDNEY AND URETER: No solid masses. No significant calcification. No hydronephrosis or hydrouret er. AORTA AND RETROPERITONEUM: No aneurysm. No retroperitoneal masses or adenopathy. BOWEL AND PERITONEAL CAVITY: No inflammatory process or abnormal wall thickening or obstruction. Sto mach slightly distended with debris. Mild stool throughout the colon. No significant ascites or ayleen e air. APPENDIX: Normal. PELVIS, BLADDER, AND ABDOMINAL WALL:No abnormal masses. No free fluid. Bladder normal. BONES: No significant findings. OTHER: No other significant finding. IMPRESSION: NO SIGNIFICANT OR ACUTE PROCESS IN THE ABDOMEN OR PELVIS. TECHNICAL DOCUMENTATION: JOB ID: [id number] Quality ID # [id number]: Final reports with documentation of one or more dose reduction techniques (e.g., Au tomated exposure control, adjustment of the mA and/or kV according to patient size, use of iterative reconstruction technique) 2010 [employer]- All Rights Reserved Reading location - IP/workstation name: [email or web address]
[2019-05-04] MEDS ORDERED: CEPHALEXIN 500 MG CAPSULE PO ONE (20:19)
[2019-05-04] MEDS ORDERED: FLUCONAZOLE 100 MG TABLET PO ONE (20:19)
--- NOTE | 2019-05-04 20:36 | ER Document Report ---
ED General - General Chief Complaint: Urinary Problem Stated Complaint: URINARY PROBLEM Time Seen by Provider: 05/04/19 19:20 Primary Care Provider: [facility] [Primary Care Provider] - Follow up as needed TRAVEL OUTSIDE OF THE [place] IN LAST 30 DAYS: No - HPI Notes: Patient is a 28-year-old female with a history of frequent UTIs who presents emergency department for evaluation of dysuria, urinary frequency, right flank pain. She states is been going on for the last several days. She was seen at [facility] and had urinalysis performed, as well as urine culture. She called there for follow-up, but they are limiting their patients at this time. There were no medical dosimetrist available to help her interpret results, so they advised her to come to the emergency department. Patient also states she is been having continued yeast infection symptoms. She had a thorough STD evaluation at the health department a few days ago. They diagnosed her as having a yeast infection. She was given 2 doses of Diflucan, but lost the second 1. She states she continues to have itching in that area. No fevers or chills. No nausea or vomiting. - Related Data Allergies/Adverse Reactions: Penicillins Allergy (Verified 05/04/19 18:06) Past Medical History - General Information source: Patient - Social History Smoking Status: Never Smoker Chew tobacco use (# tins/day): No Frequency of alcohol use: Occasional Drug Abuse: None Family History: None, Reviewed & Not Pertinent Patient has suicidal ideation: No Patient has homicidal ideation: No Pulmonary Medical History: Reports: Hx Asthma Neurological Medical History: Reports: Hx Migraine Renal/ Medical History: Denies: Hx Peritoneal Dialysis Skin Medical History: Reports Hx Eczema Past Surgical History: Reports: Hx Genitourinary Surgery - reflux, Hx Oral Surgery - WISDOM TEETH - Immunizations Immunizations up to date: Yes Review of Systems - Review of Systems Genitourinary: See HPI -: Yes All other systems reviewed and negative Physical Exam - Vital signs Vitals: Temp Pulse Resp BP Pulse Ox 98.4 F 80 14 134/80 H 99 05/04/19 17:55 05/04/19 17:55 05/04/19 17:55 05/04/19 17:55 05/04/19 17:55 - Notes Notes: Vital signs reviewed, please refer to chart. Head is normocephalic, atraumatic. Pupils equal round, reactive to light. Neck is supple without meningismus. Heart is regular rate and rhythm. Lungs are clear to auscultation bilaterally. Abdomen is soft, nontender, normoactive bowel sounds throughout. Extremities without cyanosis, clubbing. Posterior calves are nontender. Peripheral pulses are equal. Skin is warm and dry. Patient is awake, alert, neurological exam is nonfocal. Course - Re-evaluation Re-evalutation: 05/04/19 20:31 Patient presents the emergency department for evaluation of dysuria and right fl ank pain. She had a urinalysis here today which is largely unremarkable, but she did have a urine culture that a few days ago shows infection. She is found to have grown Klebsiella, sensitivities are back. She is afebrile here. She has normal white count. She has normal renal function. She had a CT scan of her abdomen pelvis was entirely unremarkable. Patient is given a dose of Keflex here. Because of her reports of recent vaginal candidiasis, I did order 1 dose of Diflucan here. I will send her home with a prescription for Keflex and instructions to have her urine rechecked next week. She is to return to the ED with worsening or new concerning symptoms of any sort. 05/04/19 21:13 Patient tolerated Keflex without difficulty. She requested Diflucan for after finishing her antibiotics, prescription written. She is to follow-up with primary care next week as previously mentioned. - Vital Signs Vital signs: Temp Pulse Resp BP Pulse Ox 98.4 F 80 14 134/80 H 99 05/04/19 17:55 05/04/19 17:55 05/04/19 17:55 05/04/19 17:55 05/04/19 17:55 - Laboratory Result Diagrams: 05/04/19 18:26 05/04/19 18:26 Laboratory results interpreted by me: 05/04/19 05/04/19 18:26 18:26 Alkaline Phosphatase 37 L Leukocyte Esterase Rfl TRACE H Urine Ascorbic Acid 20 H - Diagnostic Test Radiology reviewed: Image reviewed, Reports reviewed Radiology results interpreted by me: 05/04/19 20:32 Abdomen/Pelvis CT 05/04/19 18:16 IMPRESSION: NO SIGNIFICANT OR ACUTE PROCESS IN THE ABDOMEN OR PELVIS. Discharge - Discharge Clinical Impression: Complicated UTI (urinary tract infection), Vaginal candidiasis Condition: Stable Disposition: HOME, SELF-CARE Instructions: Cephalexin ([facility]), Urinary Tract Infection ([facility]) Additional Instructions: Take all of the antibiotic as prescribed until gone. Follow-up with primary care next week, you should have your urine rechecked. Return to the emergency department with worsening or new concerning symptoms of any sort. [facility]errals: [facility] [Primary Care Provider] - Follow up as needed
[2019-05-04 21:20] VITALS: BP 128/70
== END 2019-05-04 21:24 | disposition home or self-care (01) ==
LOC: ER 17:52
DX: N39.0 Urinary tract infection, site not specified (principal); B37.3 Candidiasis of vulva and vagina; R10.9 Unspecified abdominal pain; Z88.0 Allergy status to penicillin; Z87.440 Personal history of urinary (tract) infections
CPT/HCPCS: 36415; 74176; 80053; 81001; 83690; 84703; 85025; 99284